=== PATIENT | female | born 1945 | race African-American/Black ===

== ENCOUNTER 2022-05-28 14:46 | Emergency (ER) | payer MEDICARE ==
[~2022-05-28] VITALS: Ht 149.9 cm; Wt 72.6 kg
[2022-05-28 15:36] LABS: BASOPHILS % 0.4 % (0.0-1.0); EOSINOPHILS # (AUTO) 0.2 (0.0-0.4); EOSINOPHILS % 3.2 % (0.0-6.0); HEMATOCRIT 37.1 % (34.2-44.1); HEMOGLOBIN 12.4 g/dL (12.0-16.0); LYMPHOCYTES # (AUTO) 1.9 (1.0-3.2); LYMPHOCYTES % 25.1 % (18.0-39.1); MEAN CORPUSCULAR HEMOGLOBIN 30.2 pg (28-32); MEAN CORPUSCULAR HGB CONC 33.4 g/dL (31-35); MEAN CORPUSCULAR VOLUME 90.5 fL (81-99); MONOCYTES # (AUTO) 0.5 (0.2-0.8); NEUTROPHILS # (AUTO) 4.8 (2.1-6.9); NEUTROPHILS % 64.9 % (38.7-80.0); PLATELET COUNT 332 x10e3/uL (140-360)
[2022-05-28 15:55] LABS: ALBUMIN 3.7 g/dL (3.5-5.0); ALBUMIN/GLOBULIN RATIO 0.8 (0.8-2.0); ANION GAP 16.1 mmol/L (8-16); CALCIUM 9.1 mg/dL (8.4-10.2); CREATININE, SERUM 0.91 mg/dL (0.57-1.11); POTASSIUM 4.1 mmol/L (3.5-5.1)
[2022-05-28] MEDS ORDERED: HYDRALAZINE HCL 20 MG/ML VIAL IV STA (15:58)
[2022-05-28 16:03] LABS: CREATINE KINASE MB 1.3 ng/mL (0-5.0)
[2022-05-28 17:26] LABS: CREATINE KINASE MB 1.1 ng/mL (0-5.0)
== END 2022-05-28 17:38 | disposition home or self-care (01) ==
LOC: ER 14:51
DX: I16.0 Hypertensive urgency (principal); R55 Syncope and collapse; Z95.810 Presence of automatic (implantable) cardiac defibrillator; E66.9 Obesity, unspecified; Z68.32 Body mass index [BMI] 32.0-32.9, adult; I10 Essential (primary) hypertension; E11.9 Type 2 diabetes mellitus without complications; E78.5 Hyperlipidemia, unspecified
CPT/HCPCS: 36415; 70450; 71045; 80053; 82550; 82553; 83880; 84484; 85025; 93005; 99284; J0360

== ENCOUNTER 2022-06-01 19:09 | Emergency (ER) | payer MEDICARE ==
[~2022-06-01] VITALS: Ht 149.9 cm; Wt 72.6 kg
[2022-06-01 21:00] LABS: BASOPHILS % 0.2 % (0.0-1.0); EOSINOPHILS # (AUTO) 0.2 (0.0-0.4); EOSINOPHILS % 2.6 % (0.0-6.0); HEMOGLOBIN 11.9 g/dL (12.0-16.0); LYMPHOCYTES # (AUTO) 2.6 (1.0-3.2); LYMPHOCYTES % 27.3 % (18.0-39.1); MEAN CORPUSCULAR HEMOGLOBIN 30.4 pg (28-32); MEAN CORPUSCULAR HGB CONC 33.1 g/dL (31-35); MEAN CORPUSCULAR VOLUME 91.8 fL (81-99); MONOCYTES # (AUTO) 0.7 (0.2-0.8); MONOCYTES % 7.5 % (4.4-11.3); NEUTROPHILS # (AUTO) 5.8 (2.1-6.9); PLATELET COUNT 338 x10e3/uL (140-360); RED BLOOD COUNT 3.92 x10e6/uL (3.6-5.1); RED CELL DISTRIBUTION WIDTH 12.1 % (11.7-14.4)
[2022-06-01 21:17] LABS: CALCIUM 9.4 mg/dL (8.4-10.2)
[2022-06-01 21:55] VITALS: BP 170/85
== END 2022-06-01 21:59 | disposition home or self-care (01) ==
LOC: ER 19:15
DX: M25.511 Pain in right shoulder (principal); E11.65 Type 2 diabetes mellitus with hyperglycemia; I10 Essential (primary) hypertension; E78.5 Hyperlipidemia, unspecified; R94.31 Abnormal electrocardiogram [ECG] [EKG]; Z95.810 Presence of automatic (implantable) cardiac defibrillator
CPT/HCPCS: 36415; 71045; 72040; 80048; 84484; 85025; 93005; 99283

== ENCOUNTER 2022-09-17 13:26 | Emergency (ER) | payer MEDICARE ==
[~2022-09-17] VITALS: Ht 149.9 cm; Wt 72.6 kg
[2022-09-17] MEDS ORDERED: FLUCONAZOLE 100 MG TAB PO ONE ×2 (14:30→19:30)
[2022-09-17 17:39] LABS: CLARITY,URINE CLEAR (CLEAR); COLOR,URINE YELLOW (YELLOW); KETONES,URINE NEGATIVE (NEGATIVE); LEUKOCYTE ESTERASE ,URINE NEGATIVE (NEGATIVE); NITRITE,URINE NEGATIVE (NEGATIVE); PROTEIN,URINE DIPSTICK NEGATIVE (NEGATIVE); URINE UROBILINOGEN 0.2 mg/dL (0.2 - 1)
[2022-09-17 17:40] LABS: BACTERIA,URINE MODERATE /HPF; EPITHELIAL CELLS,URINE MANY /LPF; RBC,URINE 0-5 /HPF (0-5); WBC,URINE (MAN) 0-5 /HPF (0-5)
[2022-09-17 18:24] LABS: BASOPHILS % 0.6 % (0.0-1.0); EOSINOPHILS # (AUTO) 0.2 (0.0-0.4); EOSINOPHILS % 3.3 % (0.0-6.0); HEMATOCRIT 39.1 % (34.2-44.1); HEMOGLOBIN 12.6 g/dL (12.0-16.0); LYMPHOCYTES # (AUTO) 2.3 (1.0-3.2); LYMPHOCYTES % 33.2 % (18.0-39.1); MEAN CORPUSCULAR HEMOGLOBIN 30.8 pg (28-32); MEAN CORPUSCULAR HGB CONC 32.2 g/dL (31-35); MEAN CORPUSCULAR VOLUME 95.6 fL (81-99); MONOCYTES # (AUTO) 0.5 (0.2-0.8); MONOCYTES % 7.2 % (4.4-11.3); NEUTROPHILS # (AUTO) 3.9 (2.1-6.9); NEUTROPHILS % 55.4 % (38.7-80.0); PLATELET COUNT 326 x10e3/uL (140-360); RED BLOOD COUNT 4.09 x10e6/uL (3.6-5.1); RED CELL DISTRIBUTION WIDTH 11.9 % (11.7-14.4)
[2022-09-17 18:44] LABS: ALBUMIN 4.1 g/dL (3.5-5.0); ALBUMIN/GLOBULIN RATIO 1.1 (0.8-2.0); ANION GAP 16.3 mmol/L (8-16); CALCIUM 9.5 mg/dL (8.4-10.2); CREATININE, SERUM 1.02 mg/dL (0.57-1.11); POTASSIUM 4.3 mmol/L (3.5-5.1)
[2022-09-17] MEDS ORDERED: TERCONAZOLE45 GM PV (19:47)
[2022-09-17 20:04] VITALS: BP 149/88
== END 2022-09-17 20:06 | disposition home or self-care (01) ==
LOC: ER 13:57
DX: N76.0 Acute vaginitis (principal); I10 Essential (primary) hypertension; E11.65 Type 2 diabetes mellitus with hyperglycemia; E78.5 Hyperlipidemia, unspecified; Z95.0 Presence of cardiac pacemaker
CPT/HCPCS: 36415; 71045; 80053; 81001; 84484; 85025; 93005; 99284

== ENCOUNTER 2022-12-20 17:05 | Observation (INO) | payer MEDICARE ==
[~2022-12-20] VITALS: Ht 149.9 cm; Wt 72.6 kg
[~2022-12-20 17:05] MED LIST: TERCONAZOLE45 GM PV
[2022-12-20] MEDS ORDERED: DEXTROSE 50% SYRINGE 50 ML IV STA (18:27)
[2022-12-20] MEDS ORDERED: DEXTROSE 5%/0.9% SOD CHL 1,000 ML IV ONE (18:30)
[2022-12-20 18:51] LABS: BASOPHILS # (AUTO) 0.1 (0.0-0.1); BASOPHILS % 0.5 % (0.0-1.0); EOSINOPHILS # (AUTO) 0.3 (0.0-0.4); EOSINOPHILS % 2.7 % (0.0-6.0); HEMATOCRIT 39.7 % (34.2-44.1); HEMOGLOBIN 13.1 g/dL (12.0-16.0); LYMPHOCYTES # (AUTO) 2.1 (1.0-3.2); LYMPHOCYTES % 18.6 % (18.0-39.1); MEAN CORPUSCULAR VOLUME 91.1 fL (81-99); MONOCYTES # (AUTO) 0.7 (0.2-0.8); MONOCYTES % 5.7 % (4.4-11.3); NEUTROPHILS # (AUTO) 8.2 (2.1-6.9); NEUTROPHILS % 72.2 % (38.7-80.0); PLATELET COUNT 353 x10e3/uL (140-360); RED BLOOD COUNT 4.36 x10e6/uL (3.6-5.1); RED CELL DISTRIBUTION WIDTH 12.1 % (11.7-14.4)
[2022-12-20] MEDS ORDERED: ONDANSETRON HCL INJ 2MG/ML 2ML 2 MG/ML VIAL IV PRN (19:45)
[2022-12-20] MEDS ORDERED: Morphine 2mg Syringe 2 MG/ML SYR IV PRN (19:45)
[2022-12-20] MEDS ORDERED: DEXTROSE 50% SYRINGE 50 ML IV PRN (19:45)
[2022-12-20 20:50] LABS: ALBUMIN/GLOBULIN RATIO 0.9 (0.8-2.0); ANION GAP 15.9 mmol/L (8-16); CREATININE, SERUM 0.81 mg/dL (0.57-1.11); POTASSIUM 3.9 mmol/L (3.5-5.1)
[2022-12-20 20:57] LABS: CREATINE KINASE MB 1.6 ng/mL (0-5.0)
[2022-12-21] VITALS: BP 204/91
[2022-12-21 00:30] VITALS: BP 167/63
[2022-12-21 01:57] VITALS: BP 167/63
[2022-12-21] MEDS ORDERED: CRESTOR10 MG PO (03:26)
[2022-12-21] MEDS ORDERED: AMLODIPINE BESY10 MG PO (03:26)
[2022-12-21] MEDS ORDERED: HUMALOG100 UNIT/1 SC (03:26)
[2022-12-21] MEDS ORDERED: LEVEMIR100 UNIT/1 SC (03:26)
[2022-12-21] MEDS ORDERED: LISINOPRIL10 MG PO ×2 (03:26→10:12)
[2022-12-21 04:00] VITALS: BP 183/81
[2022-12-21 06:16] LABS: BASOPHILS % 0.4 % (0.0-1.0); EOSINOPHILS # (AUTO) 0.2 (0.0-0.4); EOSINOPHILS % 2.1 % (0.0-6.0); HEMATOCRIT 37.4 % (34.2-44.1); HEMOGLOBIN 11.8 g/dL (12.0-16.0); LYMPHOCYTES # (AUTO) 2.4 (1.0-3.2); LYMPHOCYTES % 29.5 % (18.0-39.1); MEAN CORPUSCULAR HEMOGLOBIN 29.6 pg (28-32); MEAN CORPUSCULAR HGB CONC 31.6 g/dL (31-35); MONOCYTES # (AUTO) 0.7 (0.2-0.8); MONOCYTES % 7.9 % (4.4-11.3); NEUTROPHILS # (AUTO) 4.9 (2.1-6.9); NEUTROPHILS % 59.7 % (38.7-80.0); PLATELET COUNT 303 x10e3/uL (140-360); RED BLOOD COUNT 3.98 x10e6/uL (3.6-5.1); RED CELL DISTRIBUTION WIDTH 12.2 % (11.7-14.4)
[2022-12-21] MEDS ORDERED: AMLODIPINE BESYLATE 10 MG TAB PO SCH (06:30)
[2022-12-21] MEDS ORDERED: LISINOPRIL 10 MG TAB PO SCH (06:30)
[2022-12-21 08:00] VITALS: BP 170/68
[2022-12-21 08:00] LABS: EOSINOPHILS % (MANUAL) 1 % (0-7); LYMPHOCYTES % (MANUAL) 31 % (19-48); MONOCYTES % (MANUAL) 5 % (3.4-9.0); NEUTROPHILS % (MANUAL) 60 % (40-74); PLATELET ESTIMATE ADEQUATE; PLATELET MORPHOLOGY COMMENT NORMAL; RBC MORPHOLOGY COMMENT NORMAL
[2022-12-21 08:23] VITALS: BP 170/68
[2022-12-21] MEDS ORDERED: INSULIN GLARGINE 100 UNITS/ML VIAL SC SCH (09:00)
[2022-12-21] MEDS ORDERED: INSULIN LISPRO 100 UNIT/1 ML 3ML VIAL SQ SCH (09:00)
[2022-12-21] MEDS ORDERED: ONDANSETRON HCL 4 MG ORAL DISINTEGRATING TAB SL PRN (10:30)
[2022-12-21] MEDS ORDERED: LISINOPRIL 10 MG TAB PO ONE (10:30)
[2022-12-21] MEDS ORDERED: SIMVASTATIN 40 MG TAB PO SCH (21:00)
== END 2022-12-21 11:55 | disposition home or self-care (01) ==
LOC: ER 18:01 → ERHOLD 19:33 → INTOOBSV 19:33 → MED/SURG2 23:38
PROVIDERS: ADMIT Internal Medicine; ATTEND Internal Medicine
DX: E16.2 Hypoglycemia, unspecified (principal); I10 Essential (primary) hypertension; R53.1 Weakness; Z20.822 Contact with and (suspected) exposure to COVID-19
CPT/HCPCS: 0223U; 36415 ×2; 71045 ×2; 80053; 82550; 82553; 82948 ×2; 84484; 85025 ×2; 93005; 94799 ×2; 99284; G0378 ×2; J7042; J7799

== ENCOUNTER 2022-12-22 14:50 | Emergency (ER) | payer MEDICARE ==
[~2022-12-22] VITALS: Ht 149.9 cm; Wt 72.6 kg
[~2022-12-22 14:50] MED LIST changes: +AMLODIPINE BESY10 MG PO; +CRESTOR10 MG PO; +HUMALOG100 UNIT/1 SC; +LEVEMIR100 UNIT/1 SC; +LISINOPRIL10 MG PO
[2022-12-22 16:25] LABS: BASOPHILS # (AUTO) 0.1 (0.0-0.1); BASOPHILS % 0.6 % (0.0-1.0); EOSINOPHILS # (AUTO) 0.4 (0.0-0.4); EOSINOPHILS % 4.2 % (0.0-6.0); HEMATOCRIT 38.5 % (34.2-44.1); HEMOGLOBIN 12.7 g/dL (12.0-16.0); LYMPHOCYTES # (AUTO) 2.4 (1.0-3.2); LYMPHOCYTES % 28.7 % (18.0-39.1); MEAN CORPUSCULAR HEMOGLOBIN 30.5 pg (28-32); MEAN CORPUSCULAR VOLUME 92.3 fL (81-99); MONOCYTES # (AUTO) 0.6 (0.2-0.8); MONOCYTES % 7.1 % (4.4-11.3); NEUTROPHILS # (AUTO) 4.9 (2.1-6.9); NEUTROPHILS % 59.2 % (38.7-80.0); PLATELET COUNT 333 x10e3/uL (140-360); RED BLOOD COUNT 4.17 x10e6/uL (3.6-5.1); RED CELL DISTRIBUTION WIDTH 12.3 % (11.7-14.4)
[2022-12-22 16:54] LABS: ALBUMIN 3.8 g/dL (3.5-5.0); ALBUMIN/GLOBULIN RATIO 0.9 (0.8-2.0); ANION GAP 13.3 mmol/L (8-16); CALCIUM 9.8 mg/dL (8.4-10.2); CREATININE, SERUM 0.88 mg/dL (0.57-1.11); POTASSIUM 4.3 mmol/L (3.5-5.1)
== END 2022-12-22 17:35 | disposition home or self-care (01) ==
LOC: ER 15:19
DX: E11.65 Type 2 diabetes mellitus with hyperglycemia (principal); Z79.4 Long term (current) use of insulin; I10 Essential (primary) hypertension; E78.5 Hyperlipidemia, unspecified; Z79.899 Other long term (current) drug therapy; Z95.810 Presence of automatic (implantable) cardiac defibrillator
CPT/HCPCS: 36415; 80053; 82948; 85025; 99284

== ENCOUNTER 2023-01-03 02:04 | Emergency (ER) | payer MEDICARE ==
[~2023-01-03] VITALS: Ht 149.9 cm; Wt 72.6 kg
[2023-01-03] MEDS ORDERED: HYDRALAZINE HCL 20 MG/ML VIAL IV STA (02:43)
[2023-01-03] MEDS ORDERED: MECLIZINE HCL 12.5 MG TAB PO ONE (03:00)
[2023-01-03 03:03] LABS: BASOPHILS % 0.5 % (0.0-1.0); EOSINOPHILS # (AUTO) 0.3 (0.0-0.4); EOSINOPHILS % 4.2 % (0.0-6.0); HEMATOCRIT 38.9 % (34.2-44.1); HEMOGLOBIN 12.7 g/dL (12.0-16.0); LYMPHOCYTES # (AUTO) 2.3 (1.0-3.2); LYMPHOCYTES % 29.4 % (18.0-39.1); MEAN CORPUSCULAR HEMOGLOBIN 29.7 pg (28-32); MEAN CORPUSCULAR HGB CONC 32.6 g/dL (31-35); MEAN CORPUSCULAR VOLUME 91.1 fL (81-99); MONOCYTES # (AUTO) 0.5 (0.2-0.8); NEUTROPHILS # (AUTO) 4.7 (2.1-6.9); NEUTROPHILS % 59.6 % (38.7-80.0); PLATELET COUNT 343 x10e3/uL (140-360); RED BLOOD COUNT 4.27 x10e6/uL (3.6-5.1); RED CELL DISTRIBUTION WIDTH 11.9 % (11.7-14.4)
[2023-01-03 03:18] LABS: ANION GAP 17.8 mmol/L (8-16); CALCIUM 9.4 mg/dL (8.4-10.2); CREATININE, SERUM 0.98 mg/dL (0.57-1.11); POTASSIUM 3.8 mmol/L (3.5-5.1)
[2023-01-03 07:42] VITALS: BP 166/78
== END 2023-01-03 07:30 | disposition home or self-care (01) ==
LOC: ER 02:19
DX: R42 Dizziness and giddiness (principal); I10 Essential (primary) hypertension; E11.65 Type 2 diabetes mellitus with hyperglycemia; E78.5 Hyperlipidemia, unspecified; Z95.0 Presence of cardiac pacemaker
CPT/HCPCS: 36415; 80048; 84484; 85025; 93005; 99284; J0360; J8597

== ENCOUNTER 2023-01-17 09:27 | Emergency (ER) | payer MEDICARE ==
[~2023-01-17] VITALS: Ht 149.9 cm; Wt 72.6 kg
[2023-01-17] MEDS ORDERED: ONDANSETRON HCL INJ 2MG/ML 2ML 2 MG/ML VIAL IV PRN (09:30)
[2023-01-17] MEDS ORDERED: SODIUM CHLORIDE 0.9% 1000ML 1,000 ML IV STA (09:30)
[2023-01-17] MEDS ORDERED: KETOROLAC TROMETHAMINE 30 MG/ML VIAL IV STA (09:45)
[2023-01-17 10:21] LABS: ALBUMIN 3.6 g/dL (3.5-5.0); ALBUMIN/GLOBULIN RATIO 0.9 (0.8-2.0); ANION GAP 14.3 mmol/L (8-16); CALCIUM 9.2 mg/dL (8.4-10.2); CREATININE, SERUM 0.84 mg/dL (0.57-1.11); POTASSIUM 4.3 mmol/L (3.5-5.1)
[2023-01-17] MEDS ORDERED: IOPAMIDOL 370 MG/ML 100 ML INFUS..BTL INJ ONE (10:29)
[2023-01-17 10:40] LABS: CLARITY,URINE SL CLOUDY (CLEAR); COLOR,URINE YELLOW (YELLOW); KETONES,URINE NEGATIVE (NEGATIVE); LEUKOCYTE ESTERASE ,URINE NEGATIVE (NEGATIVE); NITRITE,URINE NEGATIVE (NEGATIVE); PROTEIN,URINE DIPSTICK NEGATIVE (NEGATIVE); URINE UROBILINOGEN 0.2 mg/dL (0.2 - 1)
[2023-01-17 10:43] LABS: BACTERIA,URINE MODERATE /HPF; EPITHELIAL CELLS,URINE MODERATE /LPF; RBC,URINE 0-5 /HPF (0-5); WBC,URINE (MAN) 0-5 /HPF (0-5)
[2023-01-17 11:23] LABS: BASOPHILS # (AUTO) 0.1 (0.0-0.1); BASOPHILS % 0.8 % (0.0-1.0); EOSINOPHILS # (AUTO) 0.3 (0.0-0.4); EOSINOPHILS % 5.4 % (0.0-6.0); HEMATOCRIT 38.3 % (34.2-44.1); HEMOGLOBIN 12.9 g/dL (12.0-16.0); LYMPHOCYTES # (AUTO) 1.6 (1.0-3.2); LYMPHOCYTES % 27.1 % (18.0-39.1); MEAN CORPUSCULAR HEMOGLOBIN 30.4 pg (28-32); MEAN CORPUSCULAR HGB CONC 33.7 g/dL (31-35); MEAN CORPUSCULAR VOLUME 90.1 fL (81-99); MONOCYTES # (AUTO) 0.3 (0.2-0.8); MONOCYTES % 5.5 % (4.4-11.3); NEUTROPHILS # (AUTO) 3.6 (2.1-6.9); NEUTROPHILS % 60.9 % (38.7-80.0); PLATELET COUNT 295 x10e3/uL (140-360); RED BLOOD COUNT 4.25 x10e6/uL (3.6-5.1); RED CELL DISTRIBUTION WIDTH 12.1 % (11.7-14.4)
[2023-01-17] MEDS ORDERED: NAPROXEN250 MG PO (13:12)
[2023-01-17] MEDS ORDERED: AMOXICILLIN/CLAVULANATE K 875 MG TAB PO STA (13:14)
[2023-01-17 15:07] VITALS: BP 134/78
== END 2023-01-17 15:13 | disposition home or self-care (01) ==
LOC: ER 09:31
DX: R10.31 Right lower quadrant pain (principal); E11.65 Type 2 diabetes mellitus with hyperglycemia; I10 Essential (primary) hypertension; E78.5 Hyperlipidemia, unspecified; Z95.810 Presence of automatic (implantable) cardiac defibrillator
CPT/HCPCS: 36415; 74177; 76856; 80053; 81001; 83690; 84484; 85025; 93005; 99284; J1885; Q9967

== ENCOUNTER → 2024-02-24 | Outpatient (REF) | payer MEDICARE ==
[~2024-02-24] MED LIST changes: +COREG6.25 MG PO; +NAPROXEN250 MG PO; +NEURONTIN100 MG PO
== END ==
LOC: MAMMO 13:12
PROVIDERS: ATTEND Family Medicine Adult Medicine
DX: Z12.31 Encounter for screening mammogram for malignant neoplasm of breast (principal); M85.88 Other specified disorders of bone density and structure, other site
CPT/HCPCS: 77067; 77080

== ENCOUNTER 2024-05-01 06:08 | Emergency (ER) | payer MEDICARE ==
[~2024-05-01] VITALS: Ht 149.9 cm; Wt 72.6 kg
[2024-05-01 06:17] VITALS: TEMP 97.9
[2024-05-01] MEDS ORDERED: ATORVASTATIN CA40 MG PO (06:50)
[2024-05-01] MEDS: SODIUM CHLORIDE 0.9% 1000ML 1,000 ML IV STA (06:57)
[2024-05-01] MEDS: MECLIZINE HCL 12.5 MG TAB PO SCH (06:58)
[2024-05-01 07:06] LABS: HEMATOCRIT 38.4 % (34.2-44.1); HEMOGLOBIN 13.1 g/dL (12.0-16.0); MEAN CORPUSCULAR VOLUME 89.7 fL (81-99); RED BLOOD COUNT 4.28 x10e6/uL (3.6-5.1); WHITE BLOOD COUNT 8.01 x10e3/uL (4.8-10.8)
[2024-05-01 07:07] LABS: BASOPHILS % 0.4 % (0.0-1.0); EOSINOPHILS # (AUTO) 0.2 (0.0-0.4); EOSINOPHILS % 2.6 % (0.0-6.0); LYMPHOCYTES # (AUTO) 1.5 (1.0-3.2); LYMPHOCYTES % 18.5 % (18.0-39.1); MEAN CORPUSCULAR HEMOGLOBIN 30.6 pg (28-32); MEAN CORPUSCULAR HGB CONC 34.1 g/dL (31-35); MONOCYTES # (AUTO) 0.5 (0.2-0.8); MONOCYTES % 6.2 % (4.4-11.3); NEUTROPHILS # (AUTO) 5.8 (2.1-6.9); NEUTROPHILS % 71.9 % (38.7-80.0); PLATELET COUNT 304 x10e3/uL (140-360); RED CELL DISTRIBUTION WIDTH 12.1 % (11.7-14.4)
[2024-05-01 07:38] VITALS: PULSE 75
[2024-05-01] MEDS: CARVEDILOL 12.5 MG TAB PO ONE (07:38)
[2024-05-01 07:39] VITALS: BP 197/106
[2024-05-01] MEDS: LISINOPRIL 20 MG TAB PO ONE (07:39)
[2024-05-01 07:42] LABS: ALBUMIN 3.9 g/dL (3.5-5.0); ANION GAP 20.9 mmol/L (8-16); BILIRUBIN,TOTAL 0.6 mg/dL (0.2-1.2); CALCIUM 9.1 mg/dL (8.4-10.2); CREATININE, SERUM 0.96 mg/dL (0.57-1.11); POTASSIUM 3.9 mmol/L (3.5-5.1)
[2024-05-01 08:37] VITALS: PULSE 70; RESP 16; O2SAT 97
[2024-05-01] MEDS ORDERED: MECLIZINE HCL12.5 MG PO (08:50)
== END 2024-05-01 10:16 | disposition home or self-care (01) ==
LOC: ER 06:15
DX: R42 Dizziness and giddiness (principal); I10 Essential (primary) hypertension; E11.65 Type 2 diabetes mellitus with hyperglycemia; E78.5 Hyperlipidemia, unspecified; F32.A Depression, unspecified; Z95.810 Presence of automatic (implantable) cardiac defibrillator
CPT/HCPCS: 36415; 80053; 83690; 85025; 93005; 99284; J7030; J8597

== ENCOUNTER 2024-06-10 01:14 | Emergency (ER) | payer MEDICARE ==
[~2024-06-10] VITALS: Ht 149.9 cm; Wt 68.0 kg
[~2024-06-10 01:14] MED LIST changes: +ATORVASTATIN CA40 MG PO; +MECLIZINE HCL12.5 MG PO
[2024-06-10 01:37] VITALS: TEMP 98
[2024-06-10 02:36] VITALS: BP 205/82
[2024-06-10] MEDS: CLONIDINE HCL 0.2 MG TAB PO ONE (02:36)
[2024-06-10 04:02] VITALS: PULSE 64; RESP 17; O2SAT 98
== END 2024-06-10 05:03 | disposition home or self-care (01) ==
LOC: ER 01:19
DX: R42 Dizziness and giddiness (principal); I16.0 Hypertensive urgency; I10 Essential (primary) hypertension; E11.9 Type 2 diabetes mellitus without complications; E78.5 Hyperlipidemia, unspecified; F32.A Depression, unspecified; Z95.810 Presence of automatic (implantable) cardiac defibrillator
CPT/HCPCS: 99284